=== PATIENT | female | born 1975 | race Two or more races ===

== ENCOUNTER → 2018-12-27 | Outpatient (CLI) | payer OTHER ==
--- NOTE | 2018-12-27 18:08 | RADIOLOGY REPORT (SQ) ---
EXAM DESCRIPTION: CHEST 2 VIEWS COMPLETED DATE/TIME: 12/27/2018 5:20 pm REASON FOR STUDY: R05 COUGH R06.2 WHEEZING COMPARISON: None. EXAM PARAMETERS: NUMBER OF VIEWS: two views TECHNIQUE: Digital Frontal and Lateral radiographic views of the chest acquired. RADIATION DOSE: NA LIMITATIONS: none FINDINGS: LUNGS AND PLEURA: No opacities, masses or pneumothorax. No pleural effusion. MEDIASTINUM AND HILAR STRUCTURES: No masses or contour abnormalities. HEART AND VASCULAR STRUCTURES: Heart normal size. No evidence for failure. BONES: No acute findings. HARDWARE: None in the chest. OTHER: No other significant finding. IMPRESSION: NO ACUTE RADIOGRAPHIC FINDING IN THE CHEST. TECHNICAL DOCUMENTATION: JOB ID: [id number] [employer]- All Rights Reserved Reading location - IP/workstation name: [email or web address]
== END ==
LOC: RAD 17:00
PROVIDERS: ATTEND Family Medicine Geriatric Medicine
DX: R05 Cough (principal); R06.2 Wheezing
CPT/HCPCS: 71046

== ENCOUNTER → 2019-03-15 | Outpatient (CLI) | payer OTHER ==
[2019-03-15 08:32] LABS: HEMATOCRIT 39.1 % (36.0-47.0); HEMOGLOBIN 12.9 g/dL (12.0-15.5); MEAN CORPUSCULAR HEMOGLOBIN 26.4 pg (27.0-33.4); MEAN CORPUSCULAR VOLUME 80 fl (80-97); PLATELET COUNT 270 10^3/uL (150-450); RED CELL DISTRIBUTION WIDTH 14.5 % (11.5-14.0); WHITE BLOOD COUNT 9.5 10^3/uL (4.0-10.5)
[2019-03-15 09:16] LABS: ALANINE AMINOTRANSFERASE 37 U/L (9-52); ALBUMIN 4.4 g/dL (3.5-5.0); ALKALINE PHOSPHATASE 63 U/L (38-126); ANION GAP 11 (5-19); ASPARTATE AMINO TRANSFERASE 40 U/L (14-36); BILIRUBIN,DIRECT 0.3 mg/dL (0.0-0.4); BILIRUBIN,TOTAL 0.6 mg/dL (0.2-1.3); BLOOD UREA NITROGEN 20 mg/dL (7-20); CALCIUM 9.5 mg/dL (8.4-10.2); CARBON DIOXIDE 25 mmol/L (22-30); CHLORIDE 105 mmol/L (98-107); GLUCOSE 94 mg/dL (75-110); POTASSIUM 4.6 mmol/L (3.6-5.0); SODIUM 141.2 mmol/L (137-145); TOTAL PROTEIN 7.6 g/dL (6.3-8.2); TRIGLYCERIDES 117 mg/dL (<150)
[2019-03-15 09:27] LABS: DIRECT LDL 138 mg/dL (<100)
== END ==
LOC: OD 07:53
PROVIDERS: ATTEND Family Medicine Geriatric Medicine
DX: E55.9 Vitamin D deficiency, unspecified (principal); J30.9 Allergic rhinitis, unspecified; R06.2 Wheezing; Z79.899 Other long term (current) drug therapy
CPT/HCPCS: 36415; 80053; 80061; 82607; 84443; 85027

== ENCOUNTER → 2019-05-23 | Outpatient (CLI) | payer OTHER ==
[2019-05-23 09:20] LABS: ABSOLUTE EOSINOPHILS # (AUTO) 0.1 10^3/uL (0.0-0.6); ABSOLUTE LYMPHOCYTES (AUTO) 1.9 10^3/uL (0.5-4.7); ABSOLUTE MONOCYTES (AUTO) 0.5 10^3/uL (0.1-1.4); ABSOLUTE NEUT (AUTO) 5.4 10^3/uL (1.7-8.2); BASOPHILS % (AUTO) 0.5 % (0-2); EOSINOPHILS % (AUTO) 1.1 % (0-6); HEMOGLOBIN 13.3 g/dL (12.0-15.5); LYMPHOCYTES % (AUTO) 23.9 % (13-45); MEAN CORPUSCULAR HEMOGLOBIN 26.1 pg (27.0-33.4); MEAN CORPUSCULAR HGB CONC 32.4 g/dL (32.0-36.0); MEAN CORPUSCULAR VOLUME 81 fl (80-97); MONOCYTES % (AUTO) 6.8 % (3-13); PLATELET COUNT 263 10^3/uL (150-450); RED CELL DISTRIBUTION WIDTH 14.2 % (11.5-14.0); SEGMENTED NEUTROPHILS % (AUTO) 67.7 % (42-78); TOTAL CELLS COUNTED % (AUTO) 100 %
== END ==
LOC: OD 08:23
PROVIDERS: ATTEND Family Medicine Geriatric Medicine
DX: R74.8 Abnormal levels of other serum enzymes (principal); R79.89 Other specified abnormal findings of blood chemistry
CPT/HCPCS: 36415; 84460; 85025

== ENCOUNTER 2019-11-03 23:31 | Emergency (ER) | payer OTHER ==
[2019-11-04] MEDS ORDERED: ONDANSETRON HCL INJ/PF 4 MG/2 ML SDV IV ONE (00:35)
[2019-11-04] MEDS ORDERED: NORMAL SALINE 1000 ML 1,000 ML IV ONE (00:35)
--- NOTE | 2019-11-04 00:55 | ER Document Report ---
ED General - General Chief Complaint: Flu Symptoms Stated Complaint: SHORTNESS OF BREATH Time Seen by Provider: 11/04/19 00:11 Primary Care Provider: MIGEL TILLMAN MD [Primary Care Provider] - Follow up as needed TRAVEL OUTSIDE OF THE [place] IN LAST 30 DAYS: No COUNTRY TRAVELED TO/FROM: [facility] - Related Data Allergies/Adverse Reactions: No Known Allergies Allergy (Unverified 04/09/16 20:34) Home Medications: combivant Past Medical History - Social History Smoking Status: Never Smoker Chew tobacco use (# tins/day): No Frequency of alcohol use: None Drug Abuse: None Family History: None Patient has suicidal ideation: No Patient has homicidal ideation: No Pulmonary Medical History: Reports: Hx Asthma Past Surgical History: Reports: Hx Abdominal Surgery - tummy tuck, Hx Section - x2 Physical Exam - Vital signs Vitals: Temp Pulse Resp BP Pulse Ox 98.4 F 83 28 H 107/87 H 100 11/03/19 23:37 11/03/19 23:37 11/03/19 23:37 11/03/19 23:37 11/03/19 23:37 - Notes Notes: Presents emergency department with shortness of breath this been going on all day. She has had a low-grade fever associated with this but no chest pain sore throat or runny nose. Ports that she use her inhaler several times a day without much relief She also reports nausea and vomiting started about an hour ago not associate with any abdominal pain. Denies any diarrhea dysuria or bleeding or discharge. Is been no recent travel or immobilization no control pills report some dysuria today Past medical history is unremarkable she was diagnosed several months ago with bronchospasms and given an inhaler Social history she does not smoke or drink alcohol. 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 EYES: Pupils equal round and reactive to light, extraocular movements intact, sclera anicteric, conjunctiva are normal. ENT: nares patent, oropharynx clear without exudates. Moist mucous membranes. NECK: supple without lymphadenopathy LUNGS: Breath sounds clear to auscultation bilaterally and equal. No wheezes rales or rhonchi. Slightly tachypneic HEART: Regular rate and rhythm without murmurs ABDOMEN: Soft, with some minimal suprapubic tenderness. There is no tenderness in the right lower quadrant localized pain over both knees. There is no pain with abduction of the hips EXTREMITIES: No deformity, no edema. No palpable cords NEUROLOGICAL: No focal neurological deficits. Moves all extremities spontaneously and on command. PSYCH: Normal mood, normal affect. SKIN: Warm, Dry, normal turgor, no rashes or lesions noted. BACK-nontender in the midline Differential diagnosis viral syndrome UTI pneumonia [place] bronchitis Course - Re-evaluation Re-evalutation: 11/04/19 03:12 ED patient remained stable she was given 1 DuoNeb treatment here with some impr ovement of his wheezing. She was given a AeroChamber and instructed how to use it with a spacer. She is had serial exams abdomen is nontender she was given IV fluids and Jules is now tolerating liquids well. Medical decision making patient presents with shortness of breath probably related to her underlying asthma. Evidence of UTI. She looks well she has no evidence of a surgical abdomen and can be discharged home At this time there is no indication for admission. I have discussed the fi ndings with patient/family with return precautions and follow-up recommendations. Verbal discharge instructions given at the bedside and opportunity for questions given. Medication warnings were given if indicated. Patient is in agreement with this plan and has verbalized understanding of return precautions and the need for primary care follow-up as directed.. - Vital Signs Vital signs: Temp Pulse Resp BP Pulse Ox 98.6 F 88 28 H 121/66 98 11/04/19 02:40 11/04/19 02:40 11/03/19 23:37 11/04/19 02:40 11/04/19 02:40 - Laboratory Result Diagrams: 11/04/19 01:08 11/04/19 01:08 Laboratory results interpreted by me: 11/04/19 11/04/19 11/04/19 01:08 01:08 01:08 MCV 79 L MCH 26.6 L Glucose 128 H AST 43 H Urine Ascorbic Acid 40 H Discharge - Discharge Clinical Impression: Asthmatic bronchitis Abdominal pain Qualifiers: Abdominal location: lower abdomen, unspecified Qualified Code(s): R10.30 - Lower abdominal pain, unspecified UTI (urinary tract infection) Qualifiers: Urinary tract infection type: acute cystitis Hematuria presence: without hematuria Qualified Code(s): N30.00 - Acute cystitis without hematuria Condition: Stable Disposition: HOME, SELF-CARE Instructions: Abdominal Pain ([facility]), Nitrofurantoin ([facility]), Urinary Tract Infection ([facility]) Additional Instructions: Bronchitis with Bronchospasm (Wheezing) You have bronchitis with bronchospasm (wheezing). Sometimes people develop wheezing with a chest cold. This occurs either because of an underlying tendency toward asthma or because the virus itself irritates the bronchial tubes. This irritation causes cough, shortness of breath, and wheezing. Emergency treatment of bronchospasm may include adrenaline shots or bronchodilator aerosol. You may feel lightheaded and have a rapid pulse for an hour or two. Rest and get plenty of fluids. At home, we'll treat you with a bronchodilator inhaler. Corticosteroids may be required for some patients. Until you recover, avoid chemical fumes, dusts, pollens, and exercising in very cold or dry air. If you smoke, stop now! Most cases of bronchitis get better without antibiotics. We prescribe antibiotics when we believe bacteria are damaging your airways, or if there's high risk the bronchitis will worsen into pneumonia. Increase your fluid intake. A cool mist humidifier may make your lungs more comfortable. An expectorant (cough medicine that loosens phlegm) can help. Repeated episodes of bronchitis and bronchospasm may result in lung damage -- for example, chronic bronchitis, recurrent pneumonias, or emphysema. If you develop a fever, increased wheezing, chest pain, or severe shortness of breath, you should contact the doctor immediately. Please review the discharge instructions, they will tell you about your disease/injury and what you need to return to the ED for Return to the ED if you feel worse or can follow-up with your family doctor Use your inhaler with a spacer-take 2-4 puffs 4 times a day for the next 5 days then as needed for shortness of breath you have an aerosol machine you can use the machine 4 times a day for the next 5 days then as needed for cough or shortness of breath Stay on clear liquids for 8 hours and then a bland diet avoiding fatty greasy foods for 2 to 3 days Follow-up with your family doctor or in the care clinic in 2 to 3 days if not better otherwise in 10 days You will be given a prescription for Pyridium which will help with the burning sensation you have when you urinate. This will turn your urine and tears orange. This will last for 2 or 3 days after you finish the medication. Do not wear contacts until your urine is clear to prevent permanently staining the cont acts Prescriptions: Prednisone [Deltasone 20 mg Tablet] 20 mg PO ASDIR PRN #15 tablet PRN Reason: Nitrofurantoin/Nitrofuran Mac [Macrobid 100 mg Capsule] 1 tab PO BID #10 capsule Phenazopyridine HCl [Pyridium 200 mg Tablet] 200 mg PO ASDIR PRN #9 tablet PRN Reason: Ondansetron HCl [Zofran 4 mg Tablet] 1 tab PO Q4H PRN #10 tablet PRN Reason: Forms: Return to Work Referrals: MIGEL TILLMAN MD [Primary Care Provider] - Follow up as needed [facility] [Provider Group] (2 to 3 days if not better otherwise in 10 days)
--- NOTE | 2019-11-04 01:20 | RADIOLOGY REPORT (SQ) ---
Chest 2 view on 11/04/2019 at 12:40 AM CLINICAL INDICATION: Cough COMPARISON: 12/27/2018 FINDINGS: The lungs are clear. Cardiac, hilar and mediastinal contours are within normal limits. Pulmonary vascularity is within normal limits. No bony abnormality is noted. IMPRESSION: No active disease.
[2019-11-04 01:26] LABS: ABSOLUTE LYMPHOCYTES (AUTO) 1.2 10^3/uL (0.5-4.7); ABSOLUTE MONOCYTES (AUTO) 0.6 10^3/uL (0.1-1.4); ABSOLUTE NEUT (AUTO) 4.9 10^3/uL (1.7-8.2); BASOPHILS % (AUTO) 0.3 % (0-2); EOSINOPHILS % (AUTO) 0.5 % (0-6); HEMATOCRIT 40.3 % (36.0-47.0); HEMOGLOBIN 13.6 g/dL (12.0-15.5); LYMPHOCYTES % (AUTO) 17.3 % (13-45); MEAN CORPUSCULAR HEMOGLOBIN 26.6 pg (27.0-33.4); MEAN CORPUSCULAR HGB CONC 33.6 g/dL (32.0-36.0); MEAN CORPUSCULAR VOLUME 79 fl (80-97); MONOCYTES % (AUTO) 8.4 % (3-13); PLATELET COUNT 214 10^3/uL (150-450); RED BLOOD COUNT 5.09 10^6/uL (3.72-5.28); RED CELL DISTRIBUTION WIDTH 13.7 % (11.5-14.0); SEGMENTED NEUTROPHILS % (AUTO) 73.5 % (42-78); TOTAL CELLS COUNTED % (AUTO) 100 %; WHITE BLOOD COUNT 6.7 10^3/uL (4.0-10.5)
[2019-11-04 01:28] LABS: APPEARANCE,URINE SLIGHTLY-CLOUDY; BILIRUBIN,URINE NEGATIVE (NEGATIVE); COLOR,URINE YELLOW; GLUCOSE, URINE NEGATIVE (NEGATIVE); KETONES,URINE NEGATIVE (NEGATIVE); LEUKOCYTE ESTERASE,URINE NEGATIVE (NEGATIVE); NITRITE,URINE NEGATIVE (NEGATIVE); PROTEIN,URINE NEGATIVE (NEGATIVE); URINE SPECIFIC GRAVITY 1.023; UROBILINOGEN,URINE NEGATIVE mg/dL (<2.0)
[2019-11-04 01:44] LABS: ALBUMIN 4.6 g/dL (3.5-5.0); ALKALINE PHOSPHATASE 60 U/L (38-126); ANION GAP 10 (5-19); ASPARTATE AMINO TRANSFERASE 43 U/L (14-36); BILIRUBIN,DIRECT 0.2 mg/dL (0.0-0.4); BILIRUBIN,TOTAL 0.5 mg/dL (0.2-1.3); BLOOD UREA NITROGEN 13 mg/dL (7-20); CALCIUM 9.3 mg/dL (8.4-10.2); CARBON DIOXIDE 28 mmol/L (22-30); CHLORIDE 99 mmol/L (98-107); GLUCOSE 128 mg/dL (75-110); POTASSIUM 3.8 mmol/L (3.6-5.0); TOTAL PROTEIN 7.9 g/dL (6.3-8.2)
[2019-11-04] MEDS ORDERED: IPRATROPIUM/ALBUTEROL 0.5-2.5 MG/3 ML AMPUL NEB ONE (02:47)
[2019-11-04] MEDS ORDERED: PREDNISONE 20 MG TABLET PO ONE (02:50)
[2019-11-04 02:55] VITALS: BP 121/66
[2019-11-04] MEDS ORDERED: NITROFURANTOIN MONOHYD/M-CRYST 100 MG CAPSULE PO ONE (03:01)
[2019-11-04] MEDS ORDERED: ONDANSETRON ODT 4 MG TAB (6 TAB/ER DISP) PO PRN (03:01)
== END 2019-11-04 03:44 | disposition home or self-care (01) ==
LOC: ER 23:31
DX: J45.909 Unspecified asthma, uncomplicated (principal); N30.00 Acute cystitis without hematuria; R10.30 Lower abdominal pain, unspecified
CPT/HCPCS: 94640; 99285; 96361; 96374; 36415; 83690; 85025; 81025; 80053; 81001; 71046; J7512; J2405; J7030; J7620; J8499

== ENCOUNTER 2019-11-05 23:56 | Emergency (ER) | payer OTHER ==
[2019-11-06 00:12] VITALS: BP 119/86
[2019-11-06 01:07] LABS: ABSOLUTE LYMPHOCYTES (AUTO) 2.1 10^3/uL (0.5-4.7); ABSOLUTE MONOCYTES (AUTO) 0.7 10^3/uL (0.1-1.4); ABSOLUTE NEUT (AUTO) 6.7 10^3/uL (1.7-8.2); BASOPHILS % (AUTO) 0.2 % (0-2); EOSINOPHILS % (AUTO) 0.1 % (0-6); HEMATOCRIT 41.1 % (36.0-47.0); HEMOGLOBIN 13.6 g/dL (12.0-15.5); LYMPHOCYTES % (AUTO) 22.3 % (13-45); MEAN CORPUSCULAR HEMOGLOBIN 26.5 pg (27.0-33.4); MEAN CORPUSCULAR HGB CONC 33.1 g/dL (32.0-36.0); MEAN CORPUSCULAR VOLUME 80 fl (80-97); MONOCYTES % (AUTO) 7.1 % (3-13); PLATELET COUNT 264 10^3/uL (150-450); RED BLOOD COUNT 5.13 10^6/uL (3.72-5.28); RED CELL DISTRIBUTION WIDTH 13.8 % (11.5-14.0); SEGMENTED NEUTROPHILS % (AUTO) 70.3 % (42-78); TOTAL CELLS COUNTED % (AUTO) 100 %; WHITE BLOOD COUNT 9.5 10^3/uL (4.0-10.5)
[2019-11-06] MEDS ORDERED: LEVALBUTEROL HCL NEB 1.25 MG/3 ML AMPUL NEB ONE (01:11)
[2019-11-06 01:14] LABS: APPEARANCE,URINE CLEAR; BILIRUBIN,URINE NEGATIVE (NEGATIVE); CALCIUM OXALATE CRYSTALS,URINE MODERATE /HPF; COLOR,URINE YELLOW; GLUCOSE, URINE NEGATIVE (NEGATIVE); KETONES,URINE NEGATIVE (NEGATIVE); LEUKOCYTE ESTERASE,URINE NEGATIVE (NEGATIVE); NITRITE,URINE NEGATIVE (NEGATIVE); PROTEIN,URINE NEGATIVE (NEGATIVE); URINE SPECIFIC GRAVITY 1.016; UROBILINOGEN,URINE NEGATIVE mg/dL (<2.0)
[2019-11-06] MEDS ORDERED: LORAZEPAM INJ 2 MG/1 ML VIAL IM ONE (01:17)
[2019-11-06 01:25] LABS: ALBUMIN 4.8 g/dL (3.5-5.0); ALKALINE PHOSPHATASE 62 U/L (38-126); ANION GAP 11 (5-19); ASPARTATE AMINO TRANSFERASE 33 U/L (14-36); BILIRUBIN,DIRECT 0.2 mg/dL (0.0-0.4); BILIRUBIN,TOTAL 0.5 mg/dL (0.2-1.3); BLOOD UREA NITROGEN 13 mg/dL (7-20); CALCIUM 9.4 mg/dL (8.4-10.2); CARBON DIOXIDE 26 mmol/L (22-30); CHLORIDE 100 mmol/L (98-107); GLUCOSE 93 mg/dL (75-110); POTASSIUM 4.3 mmol/L (3.6-5.0); TOTAL PROTEIN 8.3 g/dL (6.3-8.2)
--- NOTE | 2019-11-06 01:28 | RADIOLOGY REPORT (SQ) ---
EXAM DESCRIPTION: XR CHEST 1 VIEW COMPLETED DATE/TME: 11/06/2019 00:27 CLINICAL HISTORY: shortness of breath COMPARISON: 11/04/2019 FINDINGS: Single frontal view of the chest. Cardiomediastinal silhouette: Normal size and contour. Lungs: No consolidation, pneumothorax, or pleural effusion. Bones: No acute osseous abnormality. Upper abdomen: No abnormality identified. IMPRESSION: 1. No acute pulmonary process identified.
[2019-11-06] MEDS ORDERED: ALBUTEROL SULFATE HFA (90 MCG/PUFF) 200 PUFF/8.5 GM MDI IH ONE (02:31)
--- NOTE | 2019-11-06 02:36 | ER Document Report ---
ED Respiratory Problem - General Chief Complaint: Shortness Of Breath Stated Complaint: BREATHING DIFFICULTY Time Seen by Provider: 11/06/19 01:03 Primary Care Provider: MIGEL TILLMAN MD [Primary Care Provider] - Follow up as needed Information source: Patient Notes: 44-year-old woman presents to the emergency department with a complaint of shortness of breath and tightness. She was seen in ER approximately 1 day ago diagnosed with reactive airway component and bronchospasms. She was given a Combivent inhaler. She states that the inhaler is not helping her and that she is still having difficulty breathing. She is taking prednisone feels like the medication is causing her to have some "funny feelings" she is afebrile and no productive cough. TRAVEL OUTSIDE OF THE [place] IN LAST 30 DAYS: No - Related Data Allergies/Adverse Reactions: No Known Allergies Allergy (Unverified 04/09/16 20:34) Past Medical History - Social History Smoking Status: Never Smoker Frequency of alcohol use: None Drug Abuse: None Family History: None Patient has suicidal ideation: No Patient has homicidal ideation: No Pulmonary Medical History: Reports: Hx Asthma Past Surgical History: Reports: Hx Abdominal Surgery - tummy tuck, Hx Section - x2 Review of Systems - Review of Systems Notes: Constitutional: Negative for fever. HENT: Negative for sore throat. Eyes: Negative for visual changes. Cardiovascular: Negative for chest pain. Respiratory: + Shortness of breath, + wheezing . Gastrointestinal: Negative for abdominal pain, vomiting or diarrhea. Genitourinary: Negative for dysuria. Musculoskeletal: Negative for back pain. Skin: Negative for rash. Neurological: Negative for headaches, weakness or numbness. 10 point ROS negative except as marked above and in HPI. Physical Exam - Vital signs Vitals: Temp Pulse Resp BP Pulse Ox 97.7 F 69 20 119/86 H 98 11/06/19 00:10 11/06/19 00:10 11/06/19 00:10 11/06/19 00:10 11/06/19 00:10 - Notes Notes: PHYSICAL EXAMINATION: Physical Exam: General: Well-nourished well-developed woman in no acute distress HEENT: NC/AT, pupils equal round and reactive to light, MM moist,nares clear, Neck: supple, no adenopathy, no masses. Lungs: clear, + wheezing, no rales no rhonchi CVS: Regular rate and rhythm no murmur gallop or rub Abdomen: Soft active nontender, no masses, no hepatosplenomegaly Ext: No edema clubbing or cyanosis. Neuro: Alert and responsive, moving all 4 extremities on command, cranial nerves intact. Skin: Intact no open lesions, no rash PSYCH: Normal mood, normal affect. Course - Re-evaluation Re-evalutation: 11/06/19 02:35 Patient complains of feeling tight in her chest, she has a normal O2 sat with normal work to breathe. There is mild wheezing in the left and right side of the chest bilaterally. She is given a Xopenex nebulizer treatment and a rescue inhaler to use at home. I have asked her to follow-up with her primary care doctor or return to the emergency department as needed. Patient states that she feels better and understands that plan. - Vital Signs Vital signs: Temp Pulse Resp BP Pulse Ox 97.7 F 69 20 119/86 H 98 11/06/19 00:10 11/06/19 00:10 11/06/19 00:10 11/06/19 00:10 11/06/19 00:10 - Laboratory Result Diagrams: 11/06/19 00:52 11/06/19 00:52 Laboratory results interpreted by me: 11/06/19 11/06/19 00:52 00:52 MCH 26.5 L Sodium 136.7 L Total Protein 8.3 H Discharge - Discharge Clinical Impression: Asthmatic bronchitis Qualifiers: Asthma severity: mild Asthma persistence: intermittent Asthma complication type: uncomplicated Qualified Code(s): J45.20 - Mild intermittent asthma, uncomplicated Condition: Good Disposition: HOME, SELF-CARE Instructions: Bronchitis With Bronchospasm (Wheezing) ([facility]) Referrals: MIGEL TILLMAN MD [Primary Care Provider] - Follow up as needed
--- NOTE | 2019-11-06 11:20 | EKG REPORT ---
SEVERITY:- NORMAL ECG - SINUS RHYTHM : Confirmed by: Micheal Mancera 06-Nov-2019 11:20:06
== END 2019-11-06 02:50 | disposition home or self-care (01) ==
LOC: ER 23:56
DX: J45.20 Mild intermittent asthma, uncomplicated (principal); R06.02 Shortness of breath; R07.89 Other chest pain; Z79.52 Long term (current) use of systemic steroids
CPT/HCPCS: 93005; 94640; 99284; 96374; 36415; 85025; 80053; 81001; 71045; 93010; J2060; J3490 ×2